=== PATIENT | male | born 1955 | race Caucasian/White ===

== ENCOUNTER 2019-01-25 17:06 | Inpatient (IN) | payer MEDICARE, MEDICAID ==
[2019-01-25] MEDS ORDERED: IPRATROPIUM/ALBUTEROL (0.5MG/3MG) NEB INH ONE (17:17)
[2019-01-25] MEDS ORDERED: METHYLPREDNISOLONE PF 125MG/VIAL IVP ONE (17:21)
[2019-01-25] MEDS ORDERED: ALBUTEROL SULFATE (0.083%) 2.5 MG/3 ML NEB INH ONE ×2 (17:21→17:33)
[2019-01-25] MEDS ORDERED: 0.9 % SODIUM CHLORIDE 1,000 ML BAG IV ONE (17:22)
[2019-01-25 17:27] LABS: BASO % 0.2 % (0-6); EOS % 1.4 % (0-6); GRAN % 73.2 % (47-80); HEMATOCRIT 44.4 % (42.0-52.0); HEMOGLOBIN 14.3 gm/dl (14.0-18.0); LYMPH % 12.5 % (16-45); MEAN CELL VOLUME 96.9 fl (81-97); MEAN CORPUSCULAR HEMOGLOBIN 31.2 pg (27-33); MEAN CORPUSCULAR HGB CONC 32.2 g/dl (32-36); MEAN PLATELET VOLUME 10.8 fl (7.4-10.4); MONO % 12.7 % (0-9); PLATELET COUNT 182 K/uL (130-400); RED BLOOD COUNT 4.58 M/uL (4.40-5.70); RED CELL DISTRIBUTION WIDTH 14.5 % (11.5-14.5); WHITE BLOOD COUNT W/O DIFF 10.2 K/uL (4.2-12.2)
[2019-01-25] MEDS ORDERED: ALBUTEROL (0.5% CONCENTRATED) 2.5 MG/0.5 ML VIAL.NEB INH ONE ×2 (17:27→17:43)
--- NOTE | 2019-01-25 17:31 | Emergency Department Record ---
History of Present Illness - General Chief Complaint: Shortness of breath Stated Complaint: WINSOME Time Seen by Provider: 01/25/19 17:11 Source: Patient, Family, Old records reviewed Mode of Arrival: EMS Limitations: No limitations - History of Present Illness Initial Comments: The patient is here due to a 1-2 day hx of cough, congestion, SOB and productive cough. The patient has a long hx of COPD and heavy tobacco use and frequent evaluations for lung issues. He recently was admitted to [facility] for COPD and was recommended to go home on oxygen but it was denied by his PCP. The patient denies any pain, fever, or changes in his sputum. MD Complaint: Cough, Shortness of breath Onset/Timin -: Days(s) Severity scale (1-10): 1 Quality: Aching Worsens With: Exertion Known History Of: COPD - Related Data Home Medications Medication Instructions Recorded Confirmed Last Taken Albuterol Sulfate 0.083% [Neb] 3 ml NEB .EVERY 4-6 HOURS PRN 01/25/19 01/25/19 01/25/19 [Albuterol Sulfate] Albuterol Sulfate [Albuterol 8.5 gm IH DAILY 01/25/19 01/25/19 01/25/19 Sulfate Hfa] Atorvastatin Calcium [Lipitor] 20 mg PO DAILY 01/25/19 01/25/19 01/25/19 Budesonide [Pulmicort Flexhaler] 90 mcg IH Q12H 01/25/19 01/25/19 01/25/19 Cholecalciferol (Vitamin D3) 1,000 unit PO DAILY 01/25/19 01/25/19 01/25/19 [Vitamin D3] Clozapine [Clozaril] 100 mg PO QHS 01/25/19 01/25/19 01/25/19 Diltiazem HCl [Diltiazem ER] 240 mg PO DAILY 01/25/19 01/25/19 01/25/19 Guaifenesin [Mucus Relief] 400 mg PO BID 01/25/19 01/25/19 01/25/19 Loratadine 10 mg PO DAILY 01/25/19 01/25/19 01/25/19 Losartan Potassium 25 mg PO DAILY 01/25/19 01/25/19 01/25/19 Metformin HCl 500 mg PO BID 01/25/19 01/25/19 01/25/19 Polyethylene Glycol 3350 [Miralax] 17 gm PO DAILY 01/25/19 01/25/19 01/25/19 Risperidone [Risperdal] 2 mg PO BID 01/25/19 01/25/19 01/25/19 Allergies Allergy/AdvReac Type Severity Reaction Status Date / Time NSAIDS (Non-Steroidal Allergy PT UNSURE Verified 01/25/19 17:25 Anti-Inflamma OF REACTION penicillin V potassium Allergy PT UNSURE Verified 01/25/19 17:25 [From Cayla Watt] OF REACTION Travel Screening - Travel/Exposure Within Last 30 Days Have you traveled within the last 30 days?: No - Travel/Exposure Within Last Year Have you traveled outside the [place] in the last year?: No - Additonal Travel Details Have you been exposed to anyone with a communicable illness?: No - Travel Symptoms Symptom Screening: None Review of Systems Constitutional: Reports: Malaise. Denies: Chills, Fever Eyes: Denies: Eye discharge ENT: Reports: Congestion Respiratory: Reports: Cough, Dyspnea. Denies: Hemoptysis Cardiovascular: Denies: Arrhythmia, Chest pain Endocrine: Reports: Fatigue Gastrointestinal: Denies: Nausea Genitourinary: Denies: Dysuria Musculoskeletal: Denies: Arthralgia, Other Skin: Denies: Bruising Past Medical History - SOCIAL HISTORY Smoking Status: Current every day smoker Alcohol Use: None Drug Use: None - RESPIRATORY Hx Respiratory Disorders: Yes Hx COPD: Yes - CARDIOVASCULAR Hx Cardio Disorders: No - NEURO Hx Neuro Disorders: No - GI Hx GI Disorders: No - Hx Genitourinary Disorders: Yes Hx Prostate Problems: Yes Hx UTI: Yes - ENDOCRINE Hx Diabetes: Yes - MUSCULOSKELETAL Hx Musculoskeletal Disorders: No - PSYCH Hx Psych Problems: No Comment:: schizophrenia - HEMATOLOGY/ONCOLOGY Hx Hematology/Oncology Disorders: No Family Medical History Any Significant Family History?: Yes Family Hx Comment (NOT TO BE USED IN PLACE OF ITEMS BELOW): Pt poor historian Physical Exam - General General Appearance: Alert, Cooperative, No acute distress - Head Head exam: Atraumatic, Normocephalic - Eye Eye exam: Normal appearance, PERRL - ENT Throat exam: Normal inspection. negative: Tonsillar erythema, Tonsillar exudate - Neck Neck exam: Normal inspection, Full ROM. negative: Tenderness - Respiratory Respiratory exam: Decreased breath sounds (at the bases.), Respiratory distress (mild.), Wheezes (mildly in the upper lobes.). negative: Normal lung sounds bilaterally - Cardiovascular Cardiovascular Exam: Regular rate, Normal rhythm, Normal heart sounds - GI/Abdominal GI/Abdominal exam: Soft, Normal bowel sounds. negative: Tenderness - Extremities Extremities exam: Normal inspection - Neurological Neurological exam: Alert. negative: Altered, Motor sensory deficit - Psychiatric Psychiatric exam: negative: Anxious - Skin Skin exam: negative: Rash Course Vital Signs 01/25/19 17:16 Temperature 98.3 F Pulse Rate 111 H Respiratory 20 Rate Blood Pressure 97/53 Pulse Ox 85 L - Reevaluation(s) Reevaluation #1: The patient is doing better but is still breathing fast and coughing. I do plan on ordering an ABG to see if the patient is retaining CO2. We are also still waiting on an xray. 01/25/19 17:52 Reevaluation #2: The patient is feeling better with his breathing at this time. His RR is improving and his lung aeration is clearly better. I did discuss the issues with the patient with Trevor the RT and we feel the patient would benefit from a course of BIPAP. The patient was on it his last admission at [facility] per the caregiver that is with the patient. I also did discuss the case with Dr. Mcneil and he does accept the admission. 01/25/19 18:20 Reevaluation #3: The patient continues to tolerate the BIPAP very well and his breathing is definitely improving. I did discuss the issues with Trevor the RT and he will obtain a 2nd ABG in 2-3 hours and we discuss the results. 01/25/19 18:31 Medical Decision Making - Data Complexity MDM Data: Labs Ordered and/or Reviewed, X-Ray Ordered and/or Reviewed, EKG Ordered and/or Reviewed - Lab Data Result diagrams: 01/26/19 06:05 01/25/19 17:19 Lab Results 01/25/19 Range/Units 17:19 WBC 10.2 (4.2-12.2) K/uL RBC 4.58 (4.40-5.70) M/uL Hgb 14.3 (14.0-18.0) gm/dl Hct 44.4 (42.0-52.0) % MCV 96.9 (81-97) fl MCH 31.2 (27-33) pg MCHC 32.2 (32-36) g/dl RDW 14.5 (11.5-14.5) % Plt Count 182 (130-400) K/uL MPV 10.8 H (7.4-10.4) fl Gran % 73.2 (47-80) % Lymphocytes % 12.5 L (16-45) % Monocytes % 12.7 H (0-9) % Eosinophils % 1.4 (0-6) % Basophils % 0.2 (0-6) % - EKG Data -: EKG Interpreted by Me EKG: No Acute Changes - Radiology Data Radiology results: Report reviewed (CXR: possible lower lobe infiltrate.) Disposition Disposition: Admit Clinical Impression: COPD exacerbation Disposition: Still a Patient at [facility] Decision to Admit: Admit from ER Decision to Admit Date: 01/25/19 Decision to Admit Time: 18:22 Accepting Physician: Ewa Time Discussed w/Accepting Physician: 18:22 Condition: (2) Stable Time of Disposition: 18:22 Quality - Quality Measures Quality Measures: N/A - Blood Pressure Screening View Details: Yes Does Patient Have Any of the Following: No Blood Pressure Classification: Normal BP Reading Systolic Measurement: 97 Diastolic Measurement: 53 Screening for High Blood Pressure: < Normal BP, F/U Not Required > [G8783]
[2019-01-25 17:40] LABS: CREATININE 1.8 mg/dL (0.7-1.2)
[2019-01-25 17:45] LABS: C-REACTIVE PROTEIN 20.88 mg/dL (<0.5)
[2019-01-25 18:04] LABS: ARTERIAL BLD GAS O2 SATURATION 92.8 % (95-98); ARTERIAL BLOOD GAS HCO3 25.7 mmol/L (18-23); ARTERIAL BLOOD GAS PCO2 54.6 mmHg (35-48); CARBOXYHEMOGLOBIN 9.5 % (0-1.5); O2 HEMOGLOBIN 84.2 % vol (94-99); TOTAL HEMOGLOBIN 12.1 g/dl (14-18)
[2019-01-25 18:05] LABS: ALLEN TEST PASS
[2019-01-25] MEDS ORDERED: MAGNESIUM SULFATE 16 MEQ in 0.9 % SODIUM CHLORIDE 100ML 100 ML IV ONE (18:18)
[2019-01-25] MEDS ORDERED: LEVOFLOXACIN/D5W 750 MG/150 ML BAG IVPB ONE (18:18)
[2019-01-25 18:54] LABS: ARTERIAL BLD GAS O2 SATURATION 91.7 % (95-98); ARTERIAL BLOOD GAS BASE EXCESS -1.7 mmol/L (-2 - 3); ARTERIAL BLOOD GAS HCO3 24.9 mmol/L (18-23); ARTERIAL BLOOD GAS PCO2 52.7 mmHg (35-48)
[2019-01-25 18:55] LABS: CARBOXYHEMOGLOBIN 6.1 % (0-1.5); METHEMOGLOBIN 2.9 % (0.0-1.5); O2 HEMOGLOBIN 83.5 % vol (94-99)
[2019-01-25 18:56] LABS: ALLEN TEST PASS
[2019-01-25] MEDS ORDERED: 0.9 % SODIUM CHLORIDE 1000ML 1,000 ML IV PRN (20:32)
[2019-01-25] MEDS ORDERED: ACETAMINOPHEN 500 MG TABLET PO PRN (20:32)
[2019-01-25 20:41] LABS: ARTERIAL BLD GAS O2 SATURATION 93.1 % (95-98); ARTERIAL BLOOD GAS BASE EXCESS -2.2 mmol/L (-2 - 3); ARTERIAL BLOOD GAS HCO3 24.5 mmol/L (18-23); ARTERIAL BLOOD GAS PCO2 53.2 mmHg (35-48); ARTERIAL BLOOD GAS pH 7.29 (7.35-7.45); CARBOXYHEMOGLOBIN 4.7 % (0-1.5); METHEMOGLOBIN 3.3 % (0.0-1.5); O2 HEMOGLOBIN 85.7 % vol (94-99); TOTAL HEMOGLOBIN 12.4 g/dl (14-18)
[2019-01-25] MEDS: IPRATROPIUM/ALBUTEROL (0.5MG/3MG) NEB INH SCH (21:07)
[2019-01-25] MEDS ORDERED: METFORMIN 500 MG TABLET PO SCH (22:00)
[2019-01-25] MEDS ORDERED: ALBUTEROL SULFATE (0.083%) 2.5 MG/3 ML NEB INH SCH (22:00)
[2019-01-25] MEDS: NICOTINE 21 MG/24 HOUR PATCH TD SCH (22:18)
[2019-01-25] MEDS: CLOZAPINE 100 MG PO SCH (23:31)
[2019-01-26] MEDS: ALBUTEROL SULFATE (0.083%) 2.5 MG/3 ML NEB INH PRN (01:59)
[2019-01-26] MEDS: IPRATROPIUM/ALBUTEROL (0.5MG/3MG) NEB INH SCH ×5 (06:01→22:31)
[2019-01-26 06:21] LABS: HEMATOCRIT 43.6 % (42.0-52.0); HEMOGLOBIN 13.8 gm/dl (14.0-18.0); LYMPH % 5.3 % (16-45); MEAN CELL VOLUME 96.9 fl (81-97); MEAN CORPUSCULAR HGB CONC 31.7 g/dl (32-36); MEAN PLATELET VOLUME 10.7 fl (7.4-10.4); MONO % 2.7 % (0-9); PLATELET COUNT 179 K/uL (130-400); RED CELL DISTRIBUTION WIDTH 14.2 % (11.5-14.5); WHITE BLOOD COUNT W/O DIFF 7.7 K/uL (4.2-12.2)
[2019-01-26 06:26] LABS: MEAN CORPUSCULAR HEMOGLOBIN 30.6 pg (27-33)
[2019-01-26 06:29] LABS: ARTERIAL BLD GAS O2 SATURATION 95.3 % (95-98); ARTERIAL BLOOD GAS BASE EXCESS -2.3 mmol/L (-2 - 3); ARTERIAL BLOOD GAS HCO3 24.7 mmol/L (18-23); ARTERIAL BLOOD GAS PCO2 54.7 mmHg (35-48); ARTERIAL BLOOD GAS pH 7.28 (7.35-7.45); CARBOXYHEMOGLOBIN 5.1 % (0-1.5); O2 HEMOGLOBIN 92.2 % vol (94-99); TOTAL HEMOGLOBIN 12.6 g/dl (14-18)
[2019-01-26 06:30] LABS: ALLEN TEST PASS
[2019-01-26 07:27] LABS: CREATININE 1.6 mg/dL (0.7-1.2)
[2019-01-26] MEDS: METHYLPREDNISOLONE PF 125MG/VIAL IVP SCH ×3 (08:00→22:04)
[2019-01-26] MEDS: LOSARTAN POTASSIUM 25 MG TABLET PO SCH (09:11)
[2019-01-26] MEDS: LORATADINE 10 MG TABLET PO SCH (09:11)
[2019-01-26] MEDS: RISPERIDONE 1 MG TABLET PO SCH ×2 (09:11→21:01)
[2019-01-26] MEDS: CLOZAPINE 100 MG PO SCH ×2 (09:12→21:02)
[2019-01-26] MEDS: POLYETHYLENE GLY 17 GM PACKET PO SCH ×2 (09:12→09:14)
[2019-01-26] MEDS ORDERED: METHYLPREDNISOLONE PF 125MG/VIAL IVP SCH (10:00)
[2019-01-26] MEDS: LEVOFLOXACIN/D5W 750 MG/150 ML BAG IVPB SCH (18:49)
[2019-01-26] MEDS: NICOTINE 21 MG/24 HOUR PATCH TD SCH (20:17)
[2019-01-27] MEDS: IPRATROPIUM/ALBUTEROL (0.5MG/3MG) NEB INH SCH ×5 (05:40→22:02)
[2019-01-27 06:00] LABS: ARTERIAL BLD GAS O2 SATURATION 94.7 % (95-98); ARTERIAL BLOOD GAS BASE EXCESS 1.4 mmol/L (-2 - 3); ARTERIAL BLOOD GAS HCO3 27.4 mmol/L (18-23); ARTERIAL BLOOD GAS PCO2 51.7 mmHg (35-48); ARTERIAL BLOOD GAS pH 7.34 (7.35-7.45); CARBOXYHEMOGLOBIN 3.9 % (0-1.5); O2 HEMOGLOBIN 92.9 % vol (94-99); TOTAL HEMOGLOBIN 12.5 g/dl (14-18)
[2019-01-27] MEDS: METHYLPREDNISOLONE PF 125MG/VIAL IVP SCH (06:18)
[2019-01-27 06:56] LABS: CREATININE 1.4 mg/dL (0.7-1.2)
--- NOTE | 2019-01-27 07:51 | RADIOLOGY REPORT ---
EXAM: CHEST, TWO VIEWS HISTORY: COPD. TECHNIQUE: PA and lateral views of the chest were obtained. FINDINGS: When compared to the examination of 09/02/16 there has been no significant change in the pulmonary hyperinflation. Flattening of the hemidiaphragms is present on the lateral view. Patchy densities are present in the right upper lobe. The lungs are otherwise clear. There are no effusions. The heart and pulmonary vessels are normal. IMPRESSION: MILD PATCHY RIGHT UPPER LOBE INFILTRATE IN A SETTING OF SIGNIFICANT COPD. SHORT TERM FOLLOW-UP IS RECOMMENDED. JOB NUMBER: [id number] MTDD
[2019-01-27] MEDS: RISPERIDONE 1 MG TABLET PO SCH ×2 (09:23→21:29)
[2019-01-27] MEDS: GLIPIZIDE 5 MG TABLET PO SCH (09:24)
[2019-01-27] MEDS: LOSARTAN POTASSIUM 25 MG TABLET PO SCH (09:24)
[2019-01-27] MEDS: LORATADINE 10 MG TABLET PO SCH (09:24)
[2019-01-27] MEDS: CLOZAPINE 100 MG PO SCH ×2 (09:25→21:34)
[2019-01-27] MEDS: POLYETHYLENE GLY 17 GM PACKET PO SCH (09:25)
[2019-01-27] MEDS ORDERED: PATIENT OWN MED: PO SCH (10:00)
--- NOTE | 2019-01-27 10:20 | History and Physical Report ---
DATE OF ADMISSION: 01/26/2019, 10:47 a.m. CHIEF COMPLAINT: Dyspnea, cough, congestion for 2-3 days prior to coming in. HISTORY OF PRESENT ILLNESS: This 63-year-old male presents from [facility] with 1-day or 2-day history of cough, congestion, shortness of breath, productive cough. He has a long history of COPD and a heavy tobacco user. He smokes all day long, and he has had frequent episodes of COPD in the past. He was admitted to [facility] recently for COPD, and he was recommended to go home on oxygen, but it was denied by the PCP. The patient denies any pain, fever, or change in sputum. His blood gas in the emergency department revealed a pH of 7.3. His PO2 in the emergence department was 73, and his PCO2 was 54.6. He was on BiPAP in the emergency department because of his elevated PCO2, and his respiratory rate was at 44 breaths a minute. His C-reactive protein is high at 20.88. His procalcitonin is 0.389. His white count is 10,200, hemoglobin 14.3, segs were 73, lymphs were 12, and monos were 12. In the emergency department, he was placed on BiPAP because of concern he may be retaining PCO2, and his respiratory rate was high. He had multiple breathing treatments in the emergency department, given IV Solu-Medrol, and started on IV Levaquin. He was admitted to the hospital for further care and evaluation. He is a schizophrenic patient from [facility], and he is on schizophrenic medication and seems to be stable at this time. PAST MEDICAL HISTORY: COPD. If he needs oxygen, I am not sure. From previous charts, he may have needed to have it when he left [facility], but it was stopped in the outpatient setting. He has schizophrenia. His psychiatrist is Dr. Zavaleta. He has hyperlipidemia, seasonal allergies, panlobular emphysema. He has a urostomy with suprapubic catheter. He has benign hypertension, chronic kidney disease, stage3. He has diabetes mellitus, type 2 and is on metformin, and he has some kidney manifestation of his diabetes, type 2. PAST SURGICAL HISTORY: He has suprapubic catheter, kidney and prostate surgery. CURRENT MEDICATIONS: 1. Metformin 500 mg 1 b.i.d. 2. Guaifenesin 400 mg b.i.d. 3. Pulmicort Flexhaler 180 mcg 1 puff every 12 hours. 4. Risperdal 2 mg b.i.d. 5. Atorvastatin [address] 240 mg 1 daily. 7. Loratadine 10 mg daily. 8. Losartan 25 mg daily. 9. MiraLax 17 grams daily. 10. Vitamin D3 1000 units daily. 11. Clozapine 100 mg in the morning and 300 mg at night. 12. DuoNeb every 4 hours as needed. 14. Ventolin inhaler 2 puffs every 4 hours as needed. Daily weights. His last weight was 208 prior to coming to the hospital. Blood pressure 145/117. Pulse 117. ALLERGIES: Nonsteroidal anti-inflammatories, penicillin. SOCIAL HISTORY: He smokes more than a pack a day; 2 packs a day is more of what he states. No alcohol or drug use. FAMILY HISTORY: He is a poor historian, so unable to obtain a family history. SYSTEMS REVIEW: HEENT: He is a poor historian, but from the chart and the ER note, he has congestion, runny nose, and cough for the last 2 days. Cardiovascular: No chest pain or palpitations. Respiratory: He has a cough, congestion, and wheezing. I talked to him about his tobacco use and would like him to stop smoking tobacco. Gastrointestinal: No nausea, vomiting, diarrhea, black stools, or bloody stools. Genitourinary: No dysuria, hematuria, frequency, or burning on urination. Musculoskeletal: No joint or bone abnormalities. Neurologic: No CVA problems or paresthesias. Endocrine: No thyroid disease. Integument: No rash, ulcers, change in moles, or yellow skin. PHYSICAL EXAMINATION: VITAL SIGNS: Height 6 feet 2 inches. Weight 205 pounds. Temperature 97.6. Pulse 108. Blood pressure 125/54. Respiratory rate 22. Pulse oximetry 97% on 3 liters nasal cannula. HEENT: Pupils equal, round, and reactive to light and accommodation. Extraocular muscles intact. Throat is clear. Nose is clear. There is congestion and runny nose. No erythema noted. NECK: Supple. No jugular venous distention. No hepatojugular reflex. No carotid bruit. Thyroid is smooth. LUNGS: Wheezing in bilateral lung vasquez. HEART: Regular rate and rhythm without murmurs, clicks, rubs, or gallops. ABDOMEN: Soft, nontender. No hepatosplenomegaly, no masses, no tenderness. Bowel sounds active. No bruits. EXTREMITIES: No pitting edema. No cyanosis, no clubbing. Full range of motion. Peripheral pulses good. BREASTS: Normal male breasts. RECTAL: Deferred. GENITALIA: Deferred. NEUROLOGIC: Cranial nerves II through XII intact. No gross defects. Sensation normal. Strength normal. Deep tendon reflexes good bilaterally. Babinski is negative. He is alert and oriented to name, month, place, and where he lives. He had some confusion because of his schizophrenia, and sometimes his questions are a little bit confused, and answers are confused. IMPRESSION: 1. Right upper lobe pneumonia. 2. COPD exacerbation. 3. Schizophrenia, controlled. 4. Tobacco use disorder. 5. Diabetes mellitus, type 2, and on metformin, but will stop because he has lactic acidosis. 6. Lactic acidosis. Lactic acid was 2.4. Stop the medication here in the hospital, and may have to switch him to a different diabetic medication. 7. Hyperlipidemia. 8. Allergic rhinitis. 9. Hypertension. 10. Suprapubic catheter because of a prostate bladder problem. Urine looks clear in the bag. 11. Chronic kidney disease, stage 3. PLAN: 1. Stop the metformin. 2. Solu-Medrol 60 mg IV every 8 hours. 3. Oxygen 3 liters per minute. Will try to titrate it back to 2 liters. 4. DuoNebs every 4 hours while awake. 5. Albuterol every hour p.r.n. 6. Levaquin 750 mg daily. 7. Continue his psych meds. Last night, I was confused about the medication I thought he was on. We dropped his nighttime clozapine to 100 mg instead of 300 mg, but we will move him back to 300 mg tonight. MTDD
[2019-01-27] MEDS ORDERED: NICOTINE14 MG/24 HOUR PATCH TD SCH (13:45)
[2019-01-27] MEDS: PREDNISONE 20 MG TAB PO SCH (17:54)
[2019-01-27] MEDS: LEVOFLOXACIN/D5W 750 MG/150 ML BAG IVPB SCH (17:54)
[2019-01-27] MEDS: NICOTINE 21 MG/24 HOUR PATCH TD SCH (21:30)
[2019-01-28] MEDS: ALBUTEROL SULFATE (0.083%) 2.5 MG/3 ML NEB INH PRN (03:27)
[2019-01-28 06:42] LABS: LACTIC ACID 1.5 mmol/L (0.5-2.2)
[2019-01-28 06:43] LABS: CREATININE 1.5 mg/dL (0.7-1.2)
[2019-01-28] MEDS: IPRATROPIUM/ALBUTEROL (0.5MG/3MG) NEB INH SCH ×3 (07:34→10:52)
[2019-01-28] MEDS ORDERED: METOPROLOL SUCC 50 MG TABLET PO ONE (07:39)
--- NOTE | 2019-01-28 07:55 | Discharge Note ---
VTE H&P Assessment - Risk for VTE Risk for VTE: Yes Risk Level: Moderate Risk Assessment Date: 01/28/19 Risk Assessment Time: 07:49 VTE Orders Placed or Will Be Placed: Yes Discharge Medications - Discharge Medications Prescriptions: Glipizide [Glucotrol] 2.5 mg PO DAILY #30 tablet Levofloxacin [Levaquin Tab] 500 mg PO DAILY #7 tab Prednisone [Prednisone 20Mg] 20 mg PO BIDWM #10 tab Home Medications: Ambulatory Orders Albuterol Sulfate [Albuterol Sulfate Hfa] 8.5 gm IH DAILY 01/25/19 [Last Taken 01/25/19] Atorvastatin Calcium [Lipitor] 20 mg PO DAILY 01/25/19 [Last Taken 01/25/19] Budesonide [Pulmicort Flexhaler] 90 mcg IH Q12H 01/25/19 [Last Taken 01/25/19] Cholecalciferol (Vitamin D3) [Vitamin D3] 1,000 unit PO DAILY 01/25/19 [Last Taken 01/25/19] Diltiazem HCl [Diltiazem 24Hr ER (Xr)] 240 mg PO DAILY 01/25/19 [Last Taken 01/10] Guaifenesin [Mucus Relief] 400 mg PO BID 01/25/19 [Last Taken 01/25/19] Loratadine 10 mg PO DAILY 01/25/19 [Last Taken 01/25/19] Losartan Potassium 25 mg PO DAILY 01/25/19 [Last Taken 01/25/19] Polyethylene Glycol 3350 [Miralax] 17 gm PO DAILY 01/25/19 [Last Taken 01/25/19] Risperidone [Risperdal] 2 mg PO BID 01/25/19 [Last Taken 01/25/19] Glipizide [Glucotrol] 2.5 mg PO DAILY #30 tablet 01/28/19 [Last Taken Unknown] Ipratropium/Albuterol [Duoneb] 3 ml INH RESP.Q4H.WA ampul.neb 01/28/19 [Last Taken Unknown] Levofloxacin [Levaquin Tab] 500 mg PO DAILY #7 tab 01/28/19 [Last Taken Unknown] Prednisone [Prednisone 20Mg] 20 mg PO BIDWM #10 tab 01/28/19 [Last Taken Unknown ] Discharge Note - Date Date of Discharge Note: 01/28/19 Disposition: [facility] Condition: (1) Good Additional Instructions: follow up with primary physician Aaliyah Bangura in 7 days stop metformin because of lactic acidosis start glucotrol 2.5 mg per day continue levaquin 500 mg for 7 days continue prednisone 20 mg twice a day for 5 days Forms: Patient Portal Access Activity at Discharge: Increase Activity as Tolerated
[2019-01-28] MEDS: GLIPIZIDE 5 MG TABLET PO SCH (09:26)
[2019-01-28] MEDS: PREDNISONE 20 MG TAB PO SCH (09:27)
[2019-01-28] MEDS: LOSARTAN POTASSIUM 25 MG TABLET PO SCH (09:28)
[2019-01-28] MEDS: POLYETHYLENE GLY 17 GM PACKET PO SCH (09:28)
[2019-01-28] MEDS: RISPERIDONE 1 MG TABLET PO SCH (09:28)
[2019-01-28] MEDS: LORATADINE 10 MG TABLET PO SCH (09:28)
[2019-01-28] MEDS: CLOZAPINE 100 MG PO SCH (09:30)
[2019-01-28] MEDS ORDERED: ENOXAPARIN 40 MG/0.4 ML SYR SQ SCH (10:00)
[2019-01-28] MEDS ORDERED: DILTIAZEM HCL 120 MG ER CAPSULE PO SCH (10:00)
--- NOTE | 2019-01-29 09:10 | Discharge Summary ---
DATE: 01/28/2019 at 8 a.m. DISCHARGE DIAGNOSES: 1. Right upper lobe pneumonia. 2. Chronic obstructive pulmonary disease exacerbation. 3. Tachycardia. 4. Schizophrenia. 5. Diabetes mellitus type 2, off the metformin because it caused lactic acidosis and starting Glucotrol 2.5 mg a day. 6. Lactic acidosis secondary to metformin use and chronic obstructive pulmonary disease. 7. Hypoxia, which has improved. We will check him if he has oxygen requirements. I do not believe he will be going home with oxygen. He is on room air at rest and is 93% to 94% pulse ox. 8. Tobacco use disorder. He says he is going to continue smoking. He smokes 2 packs a day. 9. Hyperlipidemia. 10. Hypertension. We will restart his Cardizem 240 mg a day, which will help his tachycardia. 11. Suprapubic catheter because of prostate bladder problems. I am not sure what it is. 12. Chronic kidney disease stage 3. ATTENDING PHYSICIAN: Osmany Mcneil DO REASON FOR HOSPITALIZATION: Dyspnea, cough, congestion for 2-3 days prior to coming in. This 63-year-old male presents from [facility] with a 1- to 2- day history of cough, congestion, shortness of breath, productive cough. She has a long history of COPD and a heavy tobacco user more than 2 packs a day. He states that he smokes all day long. He has frequent episodes of COPD and was admitted recently at [facility] over the last 3-4 months ago and went home with oxygen. He improved and it was stopped at [facility]. His blood gas in the emergency department revealed a pH of 7.3, PO2 was 73, PCO2 was 54. He was placed on BiPAP because of his respiratory rate of 44 and he was hungry for air. He gradually improved throughout the hospitalization. THERAPY PROVIDED: He was started on DuoNeb treatments q.4 h., albuterol q.1 h., BiPAP, and then he was weaned off oxygen and off to room air prior to discharge. He was also given IV Solu-Medrol and oral prednisone. He was placed on IV Levaquin and he gradually improved. His tachycardia is probably because we stopped the Cardizem. His blood pressure was running a little bit low when he came into the hospital and it has been restarted on the day of discharge. CONDITION ON DISCHARGE: Much improved. He is eating. He is on room air. They are going to check him with exercise to see if he drops his pulse ox down with exercise prior to leaving. DISCHARGE INSTRUCTIONS: Follow up with his primary doctor, Dr. Aaliyah Bangura, in 1 week. DISCHARGE MEDICATION: 1. DuoNeb q.4 h. as needed. 2. Cozaar 25 mg daily. 3. MiraLax 17 g daily. 4. Risperdal 2 mg b.i.d. 5. Levaquin 500 mg a day for 7 more days. 6. Clozapine 100 mg in the morning and 300 mg at night. 7. Glucotrol, new medication, 2.5 mg daily. 8. Prednisone 20 mg b.i.d. 9. Cardizem CD 240 mg a day. 10. Stop the metformin because it caused lactic acidosis. 11. He also has an inhaler for rescue 2 puffs q.4 h. p.r.n. 12. Lipitor 20 mg daily. 13. Pulmicort nebulizer twice a day. 14. Vitamin D3, 1000 units daily. 15. Mucinex 400 mg b.i.d. 16. Claritin 10 mg daily. MTDD
== END 2019-01-28 11:11 | DRG 194 ==
LOC: ER 17:06 → MEDSURG 20:04
PROVIDERS: ADMIT Emergency Medicine; ATTEND Emergency Medicine
DX: J18.9 Pneumonia, unspecified organism (principal); J44.1 Chronic obstructive pulmonary disease with (acute) exacerbation; R09.02 Hypoxemia; E87.2 Acidosis; R00.2 Palpitations; R00.0 Tachycardia, unspecified; N18.3 Chronic kidney disease, stage 3 (moderate); R19.7 Diarrhea, unspecified; R06.02 Shortness of breath; E11.9 Type 2 diabetes mellitus without complications; F20.9 Schizophrenia, unspecified; F17.210 Nicotine dependence, cigarettes, uncomplicated
CPT/HCPCS: 85025; 82375 ×2; 86140; 80048; 82803 ×2; 84145; 71046; J1956; 36416; 36600; 82948; 83605; 85027; 87040; 93005; 93010; 94618; 94640; 94660; 94760; 94761; 99223; 99233; 99239; J1650; J2930; J7030; J7512; J7613

== ENCOUNTER 2019-10-31 09:40 | Emergency (ER) | payer MEDICARE, MEDICAID ==
[2019-10-31] MEDS ORDERED: IPRATROPIUM/ALBUTEROL (0.5MG/3MG) NEB INH ONE (09:59)
[2019-10-31] MEDS ORDERED: METHYLPREDNISOLONE PF 125MG/VIAL IVP ONE (10:00)
--- NOTE | 2019-10-31 10:05 | Emergency Department Record ---
History of Present Illness - General Chief Complaint: Difficulty Breathing Stated Complaint: WINSOME Time Seen by Provider: 10/31/19 09:54 Source: Patient, Old records reviewed Mode of Arrival: EMS Limitations: No limitations - History of Present Illness Initial Comments: The patient is here due to developing some SOB this AM. Per the patient's caregiver the staff at the [facility] home found the patient dyspneic this AM. She also states the patient may have had some chest pain this AM but the patient clearly denies that issue. Presently he states he had no pain or SOB this AM.The patient is a very poor historian and lives at the [facility] home for the disabled due to schizophrenia. He does have a long hx of COPD and still smokes. The patient does wear 2 liters of O2 PRN. Complaint: Shortness of breath Onset/Timin -: Days(s) Severity: Mild Severity scale (1-10): 1 - Related Data Home Oxygen Therapy: Yes (PRN) Home Oxygen Amount: 2 Liters Previous Rx's Medication Instructions Recorded Glipizide [Glucotrol] 2.5 mg PO DAILY #30 tablet 01/28/19 Ipratropium/Albuterol [Duoneb] 3 ml INH [id number] ampul.neb 01/28/19 Prednisone [Prednisone 20Mg] 40 mg PO DAILY #8 tab 10/31/19 Allergies Allergy/AdvReac Type Severity Reaction Status Date / Time NSAIDS (Non-Steroidal Allergy PT UNSURE Verified 10/31/19 09:54 Anti-Inflamma OF REACTION penicillin V potassium Allergy PT UNSURE Verified 10/31/19 09:54 [From Cayla Watt] OF REACTION Travel Screening - Travel/Exposure Within Last 30 Days Have you traveled within the last 30 days?: No - Travel/Exposure Within Last Year Have you traveled outside the [place] in the last year?: No - Additonal Travel Details Have you been exposed to anyone with a communicable illness?: No - Travel Symptoms Symptom Screening: None Review of Systems Constitutional: Denies: Chills, Fever Eyes: Denies: Eye discharge ENT: Denies: Congestion Respiratory: Denies: Cough, Dyspnea Cardiovascular: Denies: Chest pain Endocrine: Denies: Fatigue Gastrointestinal: Denies: Nausea Genitourinary: Denies: Dysuria Musculoskeletal: Denies: Arthralgia Skin: Denies: Bruising Neurological: Denies: Abnormal gait, Confusion Past Medical History - SOCIAL HISTORY Smoking Status: Current every day smoker Alcohol Use: None Drug Use: None - RESPIRATORY Hx Respiratory Disorders: Yes Hx COPD: Yes Comment:: PRN home NC O2 - CARDIOVASCULAR Hx Cardio Disorders: Yes Hx Hypertension: Yes - NEURO Hx Neuro Disorders: No - GI Hx GI Disorders: No - Hx Genitourinary Disorders: Yes Hx Prostate Problems: Yes Hx UTI: Yes - ENDOCRINE Hx Endocrine Disorders: No Hx Diabetes: Yes (NIDDM) - MUSCULOSKELETAL Hx Musculoskeletal Disorders: No - PSYCH Hx Psych Problems: No Comment:: schizophrenia - HEMATOLOGY/ONCOLOGY Hx Hematology/Oncology Disorders: No Family Medical History Any Significant Family History?: Yes Family Hx Comment (NOT TO BE USED IN PLACE OF ITEMS BELOW): Pt poor historian Physical Exam - General General Appearance: Alert, Cooperative, No acute distress - Head Head exam: Atraumatic, Normocephalic, Normal inspection - Eye Eye exam: Normal appearance, PERRL - ENT Throat exam: Normal inspection. negative: Tonsillar erythema, Tonsillar exudate - Neck Neck exam: Normal inspection, Full ROM. negative: Tenderness - Respiratory Respiratory exam: Normal lung sounds bilaterally. negative: Respiratory distress, Rhonchi, Stridor, Wheezes - Cardiovascular Cardiovascular Exam: Regular rate, Normal rhythm, Normal heart sounds. negative: Diastolic murmur, Systolic murmur - GI/Abdominal GI/Abdominal exam: Soft, Normal bowel sounds. negative: Rebound, Rigid, Tenderness - Extremities Extremities exam: Normal inspection, Full ROM, Normal capillary refill. negative: Tenderness - Neurological Neurological exam: Alert. negative: Motor sensory deficit Course Vital Signs 10/31/19 09:44 Temperature 97.6 F Pulse Rate 111 H Respiratory 20 Rate Blood Pressure 117/79 Pulse Ox 93 L - Reevaluation(s) Reevaluation #1: The patient is doing well at this time. He denies any SOB, WINSOME, or chest pain. He is speaking in full sentences with no SOB or WINSOME. On exam there is good aeration with presently no wheezing. The patient's caregiver who knows him well states he is in his normal state of health at this time with no SOB. The lab work is all neg for the patient along with a neg CXR. We will discharge the patient to home with a short course of Prednisone and he is to see his PCP next week for recheck. 10/31/19 10:52 Medical Decision Making - Data Complexity MDM Data: Labs Ordered and/or Reviewed, X-Ray Ordered and/or Reviewed, EKG Ordered and/or Reviewed - Lab Data Result diagrams: 10/31/19 09:40 10/31/19 09:40 - EKG Data -: EKG Interpreted by Me EKG: No Acute Changes, Unchanged From Previous - Radiology Data Radiology results: Report reviewed (CXR: Neg for acute changes, COPD.) Disposition Disposition: Discharge Clinical Impression: COPD exacerbation Disposition: Home, Self-Care Condition: (2) Stable Instructions: Dyspnea (ED) Additional Instructions: Please continue your regular medicines and continue the Prednisone tomorrow. Please see your family doctor next week for any problems and return to the ER for any new issues, pain, or any trouble breathing. Prescriptions: Prednisone [Prednisone 20Mg] 40 mg PO DAILY #8 tab Forms: Patient Portal Access Time of Disposition: 11:16 Quality - Quality Measures Quality Measures: N/A - Blood Pressure Screening View Details: Yes Does Patient Have Any of the Following: No Blood Pressure Classification: Normal BP Reading Systolic Measurement: 117 Diastolic Measurement: 79 Screening for High Blood Pressure: < Normal BP, F/U Not Required > [[id number]]
[2019-10-31 10:25] LABS: ABSOLUTE NEUTROPHIL COUNT 5.38; BASO % 0.4 % (0-6); GRAN % 72.1 % (47-80); HEMATOCRIT 49.3 % (42.0-52.0); HEMOGLOBIN 16.1 gm/dl (14.0-18.0); LYMPH % 16.8 % (16-45); MEAN CELL VOLUME 97.4 fl (81-97); MEAN CORPUSCULAR HEMOGLOBIN 31.8 pg (27-33); MEAN CORPUSCULAR HGB CONC 32.7 g/dl (32-36); MEAN PLATELET VOLUME 10.2 fl (7.4-10.4); MONO % 7.7 % (0-9); PLATELET COUNT 163 K/uL (130-400); RED BLOOD COUNT 5.06 M/uL (4.40-5.70); RED CELL DISTRIBUTION WIDTH 16.4 % (11.5-14.5); WHITE BLOOD COUNT W/O DIFF 7.5 K/uL (4.2-12.2)
[2019-10-31 10:35] LABS: BLOOD UREA NITROGEN 22 mg/dL (8-23); CREATININE 1.6 mg/dL (0.7-1.2); EST GLOMERULAR FILTRATION RATE 47 mL/min
[2019-10-31 10:36] LABS: TOTAL PROTEIN 6.6 g/dL (6.6-8.7)
[2019-10-31 10:38] LABS: GLUCOSE,RANDOM 124 mg/dL (74-109)
[2019-10-31 10:41] LABS: ALB/GLOB RATIO 1.6 (1.1-1.8); ALBUMIN 4.1 g/dL (4.0-5.0); ALKALINE PHOSPHATASE 85 U/L (40-129); ALT/SGPT 22 U/L (<41); AST/SGOT 13 U/L (10.0-50.0)
--- NOTE | 2019-10-31 11:10 | RADIOLOGY REPORT ---
EXAMINATION: Two View Chest Radiographs EXAM DATE: 10/31/2019 10:28 AM TECHNIQUE: Frontal and lateral views INDICATION: cough COMPARISON: 01/25/2019 ENCOUNTER: Not applicable FINDINGS: Pulmonary emphysema. Cardiomediastinal structures stable. No pulmonary consolidation or infiltration. No pneumothorax or pleural effusion. IMPRESSION: No acute abnormality Dictated by: Killian Lawson MD on 10/31/2019 11:08 AM. .
== END 2019-10-31 11:24 | disposition home or self-care (01) ==
LOC: ER 09:40
DX: J44.1 Chronic obstructive pulmonary disease with (acute) exacerbation (principal); I10 Essential (primary) hypertension; E11.9 Type 2 diabetes mellitus without complications; F17.210 Nicotine dependence, cigarettes, uncomplicated; Z99.81 Dependence on supplemental oxygen
CPT/HCPCS: 71046; 80053; 83880; 84484; 85025; 93005; 93010; 94640; 96374; 99284; J2930